=== PATIENT | male | born 1950 | race Caucasian/White ===

== ENCOUNTER 2016-11-01 14:42 | Outpatient (RCR) | payer OTHER ==
[~2016-11-01 14:42] MED LIST: ASPIRIN E.C. 8181 MG PO; LISINOPRIL/HCTZ1 TAB PO; MULTIPLE VITAMI1 CAP PO; NORCO 325 MG-51 TAB PO; NORCO 325 MG-7.1 TAB PO; PANCREASE MT PO; PANCREATIC ENZY1 CAP PO; PRIL40 PO; PRILOSEC 20MG20 MG PO; TYLENOL 325MG325 MG PO; ZESTRIL2.5 MG PO
== END 2017-01-18 14:30 ==
LOC: WSOH 14:42
DX: S80.11XA Contusion of right lower leg, initial encounter (principal); W20.8XXA Other cause of strike by thrown, projected or falling object, initial encounter; Y99.0 Civilian activity done for income or pay

== ENCOUNTER 2023-08-20 10:38 | Day surgery (SDC) | payer BC ==
[~2023-08-20] VITALS: Ht 182.9 cm; Wt 98.2 kg
[~2023-08-20 10:38] MED LIST changes: +HYDROmorphone 2 MG/1 ML VIAL IV PRN; +LR 1,000 ML IV SCH; +Ondansetron 4 MG/2 ML VIAL IV PRN; +fentaNYL 50 MCG/ML 2 ML VIAL IV PRN
[2023-08-20] MEDS ORDERED: dexAMETHasone 10 MG/ML VIAL ONE (10:48)
[2023-08-20] MEDS ORDERED: Ondansetron 4 MG/2 ML VIAL ONE (10:48)
[2023-08-20] MEDS ORDERED: fentaNYL 50 MCG/ML 2 ML VIAL ONE (10:48)
[2023-08-20] MEDS ORDERED: Lidocaine PF 2% (20 MG/ML) 5 ML VIAL ONE (10:48)
[2023-08-20] MEDS ORDERED: Lidocaine 2% (20 MG/ML) 20 ML UROJET UR ONE (11:52)
[2023-08-20] MEDS ORDERED: Ketorolac 30 MG/ML VIAL ONE (12:16)
[2023-08-20 12:45] VITALS: BP 139/85; PULSE 62; TEMP 97.4
[2023-08-20 13:00] VITALS: BP 140/78; PULSE 64
[2023-08-20 13:15] VITALS: BP 143/78; PULSE 68
--- NOTE | 2023-08-20 14:21 | NUR ---
[id number]: PT TO RECOVERY BAY 4 FROM PACU S/P CYSTO, URETHRAL DILATION, STONE REMOVAL (SENT HOME WITH PT) WITH INDWELLING CATHETER (16FR, 10ML BALLOON) A&O, PLACED ON MONITOR, VSS ON RA RECEIVED REPORT AND ASSUMED CARE OF PT FROM ROSANNE MARSH TO BEDSIDE PROVIDED FOOD/FLUIDS, TOLERATING WELL DUNCAN STAT LOCKED TO RLE VERBAL, WRITTEN, DEMO CATH CARE AND SUPPLIES PROVIDED - ALL QUESTIONS/CONCERNS ADDRESSED. PT HAS REMAINED A&O, NAD, VSS ON RA, TOLERATING PO, IS WITHOUT SIGNIFICANT COMPLAINT, WITH STEADY GAIT BY END OF STAY IV D/C'D. D/C INSTRUCTIONS, FOLLOW UP REVIEWED AND HANDED TO PT. ALL QUESTIONS AND CONCERNS ADDRESSED TO PT SATISFACTION. TAKEN TO EXIT VIA W/C WITH ALL BELONGINGS AND PAPERWORK IN HAND, ASSISTED INTO PASSENGER SEAT OF POV. FAMILY TO DRIVE HOME.
[2023-08-20 16:27] VITALS: BP 158/91; PULSE 71; TEMP 97.6
--- NOTE | 2023-08-20 16:29 | NUR ---
1045 Patient ambulatory to bay 4 with a steady gait, breathing even and unlabored. Patient is alert and oriented, accompanied by his . Consents reviewed and signed by patient. IV established. LR infusing via gravity at KVO. Call light in reach. Warm blanket provided.
== END 2023-08-20 13:45 | disposition home or self-care (01) ==
LOC: SDCO 10:38
DX: N35.914 Unspecified anterior urethral stricture, male (principal); N21.1 Calculus in urethra; I10 Essential (primary) hypertension; N21.0 Calculus in bladder
CPT/HCPCS: C1769; C1894; J0690; J1100; J1885; J2405; J2704; J3010; J7120

== ENCOUNTER 2023-12-14 01:48 | Emergency (ER) | payer BC ==
[~2023-12-14] VITALS: Ht 182.9 cm; Wt 95.5 kg
[~2023-12-14 01:48] MED LIST changes: -HYDROmorphone 2 MG/1 ML VIAL IV PRN; -LR 1,000 ML IV SCH; -Ondansetron 4 MG/2 ML VIAL IV PRN; -fentaNYL 50 MCG/ML 2 ML VIAL IV PRN
[2023-12-14 02:02] VITALS: TEMP 98.4
[2023-12-14] MEDS ORDERED: CEPHALEXIN500 M1 PO (02:40)
[2023-12-14] MEDS ORDERED: Cephalexin 500 MG CAP PO ONE (02:45)
[2023-12-14 02:46] VITALS: BP 163/93; PULSE 71
== END 2023-12-14 02:46 | disposition home or self-care (01) ==
LOC: COL.ER 01:48
DX: S70.11XA Contusion of right thigh, initial encounter (principal); L03.115 Cellulitis of right lower limb; Z88.0 Allergy status to penicillin; X58.XXXA Exposure to other specified factors, initial encounter